=== PATIENT | female | born 1985 | race African-American/Black ===

== ENCOUNTER 2018-03-24 08:43 | Emergency (ER) | payer MEDICAID, SELFPAY ==
[2018-03-24] MEDS ORDERED: Lidocaine 1% w/Epinephrine 1:100K 20 ML VIAL ONE (09:01)
[2018-03-24 10:49] LABS: Pregnancy Test - Urine (BHCG) Negative (Negative); Pregu Control Background? CLEAR/WHITE (CLR/WHITE); Pregu Control Bar Appear? YES (CONTROL BAR); Specific Gravity 1.019 (1.002-1.036)
[2018-03-24] MEDS ORDERED: Ibuprofen 800 MG TAB ONE (10:57)
--- NOTE | 2018-03-24 11:30 | RAD ---
RIGHT FEMUR 2 VIEWS: Date: 03/24/18 HISTORY: 33-year-old female with history of right thigh laceration. FINDINGS: There is evidence for some soft tissue injury laterally at the level of the distal femur. There is an oval lucency projected over the anterior femoral distal diaphysis, only seen on the lateral view. I feel this is probably artifactual or overlying gas density. No evidence for acute fracture or disloca tion. No metal foreign body. IMPRESSION: Lateral soft tissue injury. Oval lucency projected over the distal femur on the lateral view only, I favor this being artifactual. POS: [facility]
[2018-03-24] MEDS ORDERED: Bacitracin Zinc 1 Packet ONE (11:57)
== END 2018-03-24 12:12 | disposition home or self-care (01) ==
LOC: ERS 08:43
DX: S71.111A Laceration without foreign body, right thigh, initial encounter (principal); W26.0XXA Contact with knife, initial encounter
CPT/HCPCS: 12032; 81025; J2001

== ENCOUNTER 2020-07-14 19:29 | Emergency (ER) | payer SELFPAY ==
[2020-07-14 20:14] LABS: Bilirubin Negative (Negative); Blood, Urine Negative (Negative); Clarity Clear (Clear); Glucose, Urine (Dipstick) Normal (Negative); Ketone, Urine Negative (Negative); Leukocyte 75 Leu/uL (Negative); Nitrite Negative (Negative); Protein, Urine (Dipstick) 10 mg/dL (Neg-Trace); RBC/HPF 0-3 HPF (0-3); Specific Gravity, Urine 1.032 (1.002-1.036); Squamous Epithelial 0-3 HPF (0-3)
[2020-07-14 20:14] LABS: #Basophils 0.1 thou/uL (0.0-0.2); #Lymphocytes 3.5 thou/uL (1.20-3.40); #Monocytes 0.5 thou/uL (0.11-0.59); #Neutrophils 3.4 thou/uL (1.40-6.50); %Basophils 0.9 % (0.0-1.0); %Eosinophils 0.6 % (0.0-10.0); %Lymphocytes 46.4 % (21.0-51.0); %Neutrophils 45.1 % (42.0-75.0); Hemoglobin 12.5 g/dL (12.0-16.0); Mean Corpuscular HGB CONC 33.1 g/dL (32.0-36.0); Mean Corpuscular Volume 93.9 fL (78.0-98.0); Mean Platelet Volume 6.4 fL (7.4-10.4); Platelet Count 324 thou/uL (130-400); Red Blood Cell (RBC) Count 4.04 mill/uL (4.20-5.40); White Blood Cell (WBC) Count 7.6 thou/uL (4.8-10.8)
[2020-07-14 20:15] LABS: Bacteria/HPF Rare-Few HPF (None Seen)
[2020-07-14 20:39] LABS: ALT (SGPT) 10 U/L (8-55); AST (SGOT) 18 U/L (5-34); Albumin 4.3 g/dL (3.5-5.0); Alkaline Phosphatase 50 U/L (40-110); Anion Gap 12 mmol/L (10-20); BUN (Urea Nitrogen) 14 mg/dL (7.0-18.7); Calc. Creatinine Clearance 0 mL/min (70-130); Calcium 8.9 mg/dL (7.8-10.44); Carbon Dioxide 20 mmol/L (22-29); Chloride 108 mmol/L (98-107); Glucose 84 mg/dL (70-105); Lipase 30 U/L (8-78); Potassium 3.7 mmol/L (3.5-5.1); Protein, Total 7.3 g/dL (6.0-8.3); Sodium 136 mmol/L (136-145)
[2020-07-14 21:39] LABS: Pregnancy Test - Urine (BHCG) Negative (Negative); Pregu Control Background? CLEAR/WHITE (CLR/WHITE); Pregu Control Bar Appear? YES (CONTROL BAR); Specific Gravity 1.032 (1.002-1.036)
[2020-07-14] MEDS ORDERED: Morphine 4 MG/ML VIAL ONE (21:48)
== END 2020-07-14 22:22 | disposition left against medical advice (07) ==
LOC: ERS 19:29
DX: N39.0 Urinary tract infection, site not specified (principal)
CPT/HCPCS: 36415; 80053; 81003; 81015; 81025; 83690; 85025; 99283; J2270

== ENCOUNTER 2020-10-08 21:16 | Emergency (ER) | payer SELFPAY ==
[2020-10-09 01:13] LABS: SARS-CoV-2 PCR by NAA DETECTED (NotDetected)
== END 2020-10-08 22:08 | disposition home or self-care (01) ==
LOC: ERS 21:16
DX: U07.1 COVID-19 (principal); J06.9 Acute upper respiratory infection, unspecified
CPT/HCPCS: 87635; 93005; U0003; U0005

== ENCOUNTER 2021-03-16 03:30 | Emergency (ER) | payer OTHER | END 2021-03-16 03:56 | disposition left against medical advice (07) | LOC: ERS 03:30 | DX: Z53.21 Procedure and treatment not carried out due to patient leaving prior to being seen by health care provider (principal) ==

== ENCOUNTER 2021-06-10 17:01 | Emergency (ER) | payer OTHER ==
[2021-06-10 17:45] LABS: #Lymphocytes 0.7 thou/uL (1.20-3.40); #Monocytes 0.6 thou/uL (0.11-0.59); %Eosinophils 0.5 % (0.0-10.0); %Lymphocytes 9.8 % (21.0-51.0); %Monocytes 8.5 % (0.0-10.0); %Neutrophils 81.1 % (42.0-75.0); Hemoglobin 12.1 g/dL (12.0-16.0); Mean Corpuscular HGB CONC 34.1 g/dL (32.0-36.0); Mean Corpuscular Hemoglobin 32.6 pg (27.0-31.0); Mean Corpuscular Volume 95.6 fL (78.0-98.0); Mean Platelet Volume 6.1 fL (7.4-10.4); Platelet Count 331 thou/uL (130-400); RBC Distribution Width 12.2 % (11.5-14.5); Red Blood Cell (RBC) Count 3.72 mill/uL (4.20-5.40); White Blood Cell (WBC) Count 7.4 thou/uL (4.8-10.8)
[2021-06-10 18:02] LABS: ALT (SGPT) 9 U/L (8-55); AST (SGOT) 13 U/L (5-34); Alkaline Phosphatase 45 U/L (40-110); Anion Gap 11 mmol/L (10-20); BUN (Urea Nitrogen) 10 mg/dL (7.0-18.7); Bilirubin, Total 0.9 mg/dL (0.2-1.2); Calc. Creatinine Clearance 0 mL/min (70-130); Calcium 9.4 mg/dL (7.8-10.44); Carbon Dioxide 26 mmol/L (22-29); Chloride 104 mmol/L (98-107); Globulin 2.8 g/dL (2.4-3.5); Glucose 102 mg/dL (70-105); Lipase 13 U/L (8-78); Potassium 3.9 mmol/L (3.5-5.1); Protein, Total 6.8 g/dL (6.0-8.3); Sodium 137 mmol/L (136-145)
[2021-06-10 19:46] LABS: Bacteria/HPF 2+ HPF (None Seen); Bilirubin Negative (Negative); Blood, Urine Negative (Negative); Clarity Turbid (Clear); Glucose, Urine (Dipstick) Normal (Negative); Ketone, Urine Negative (Negative); Leukocyte 500 Leu/uL (Negative); Nitrite Negative (Negative); Protein, Urine (Dipstick) 20 mg/dL (Neg-Trace); RBC/HPF 0-3 HPF (0-3); Urobilinogen Normal mg/dL (Less than 2); pH, Urine 5.5 (5.0-9.0)
[2021-06-10] MEDS ORDERED: Ketorolac Tromethamine 30 MG/ML VIAL ONE (19:50)
[2021-06-11 13:54] LABS: SARS-CoV-2 PCR by NAA DETECTED (NotDetected)
== END 2021-06-10 21:07 | disposition home or self-care (01) ==
LOC: ERS 17:01
DX: U07.1 COVID-19 (principal)
CPT/HCPCS: 36415; 80053; 81003; 81015; 83690; 85025; 87804; 96374; J1885; U0003; U0005

== ENCOUNTER 2022-01-07 10:25 | Emergency (ER) | payer SELFPAY | END 2022-01-07 11:40 | disposition home or self-care (01) | LOC: ERS 10:25 | DX: U07.1 COVID-19 (principal) | CPT/HCPCS: 99283 ==